=== PATIENT | male | born 1960 | race American Indian/Alaskan Native ===

== ENCOUNTER 2016-12-20 06:46 | Day surgery (SDC) | payer BC ==
[2016-12-20] MEDS ORDERED: DIPRIVAN 10 MG/ML IV ONE ×2 (08:35)
--- NOTE | 2016-12-20 08:41 | Short Stay Summary ---
Short Stay Documentation - Allergies and Medications Current Medications: Allergies No Known Allergies Allergy (Verified 01/23/14 10:26) Home Medications Medication Instructions Recorded Confirmed Last Taken Type Sennosides/Docusate Sodium 1 each PO DAILY #30 tablet 01/23/14 Unknown Rx [Daniela-Colace Tablet] Starch 51%(Nf) [Anusol] 1 each [place] BID #10 supp.rect 01/23/14 Unknown Rx Active Medications Sodium Chloride (Nacl 0.9% 1000 Ml) 1,000 mls @ 50 mls/hr IV DIRECT DIMA Stop: 12/20/16 23:59 - Brief post op/procedure progress note Date of procedure: 12/20/16 Pre-op diagnosis: Colon cancer screening Post-op diagnosis: same Procedure: Colonoscopy Anesthesia: MAC Findings: as above Surgeon: CHRISTOPH LAL Estimated blood loss: none Pathology: none Condition: stable - Disposition Condition at discharge: Stable Disposition: DISCHARGED TO HOME OR SELFCARE Short Stay Discharge Plan Activity: no restrictions Weight Bearing Status: Full Weight Bearing Diet: regular, low salt, diabetic Follow up with: TAMMI JI MD, PHD [Primary Care Provider] - 7 Days
--- NOTE | 2016-12-20 08:45 | Anesthesia Day of Surgery ---
Anesthesia Day of Surgery - Day of Surgery Patient Examined: Yes Patient H&P Reviewed: Yes Patient is NPO: Yes
--- NOTE | 2016-12-20 08:47 | Anesthesia Consultation ---
Anesthesia Consult and Med Hx Date of service: 12/20/16 - Airway Anesthetic Teeth Evaluation: Good ROM Head & Neck: Adequate Mental/Hyoid Distance: Adequate Mallampati Class: Class II Intubation Access Assessment: Probably Good - Pulmonary Exam CTA: Yes - Cardiac Exam Cardiac Exam: RRR - Pre-Operative Health Status ASA Pre-Surgery Classification: ASA2 Proposed Anesthetic Plan: MAC - Pulmonary Hx Smoking: No - Cardiovascular System Hx Hypertension: Yes Hx Heart Attack/AMI: No - Endocrine Hx Non-Insulin Dependent Diabetes: Yes - Other Systems Hx Cancer: Yes (hx of prostrate ca sp treatment) - Additional Comments Anesthesia Medical History Comments: NAC
[2016-12-20] MEDS ORDERED: NACL 0.9% 1000 ML 1,000 ML IV SCH (09:00)
--- NOTE | 2016-12-20 09:24 | Post Anesthesia Evaluation ---
- Post Anesthesia Evaluation Patient Participated: Yes Airway Patent: Yes Stable Respiratory Function: Yes Nausea/Vomiting: No Temp > 96.8F: Yes Pain Manageable: Yes Adequeate Hydration: Yes Anesthesia Complications: No
[2016-12-20 10:04] VITALS: BP 134/78
== END 2016-12-20 06:47 | disposition home or self-care (01) ==
LOC: GIO 06:46
PROVIDERS: ATTEND Internal Medicine Gastroenterology
DX: Z12.11 Encounter for screening for malignant neoplasm of colon (principal); K64.0 First degree hemorrhoids; E11.9 Type 2 diabetes mellitus without complications; I10 Essential (primary) hypertension; Z98.890 Other specified postprocedural states; Z90.79 Acquired absence of other genital organ(s); Z72.89 Other problems related to lifestyle; Z82.3 Family history of stroke; Z83.3 Family history of diabetes mellitus; Z82.49 Family history of ischemic heart disease and other diseases of the circulatory system; Z85.46 Personal history of malignant neoplasm of prostate
CPT/HCPCS: 45378; 82962; J2704; J7030

== ENCOUNTER 2017-09-25 11:08 | Day surgery (SDC) | payer BC ==
[~2017-09-25 11:08] MED LIST: ANCEF/STERILE WATER 2 GM/20 ML IV NR; NACL 0.9% 1000 ML 1,000 ML IV SCH; PEPCID IV NR; SUBLIMAZE IV PRN; ZOFRAN IV PRN
[2017-09-25] MEDS ORDERED: NACL BACTERIOSTATIC INFILTRATI ONE (11:40)
--- NOTE | 2017-09-25 12:10 | Anesthesia Consultation ---
Anesthesia Consult and Med Hx Date of service: 09/25/17 - Airway Anesthetic Teeth Evaluation: Good ROM Head & Neck: Adequate Mental/Hyoid Distance: Adequate Mallampati Class: Class I Intubation Access Assessment: Good - Pulmonary Exam CTA: Yes - Cardiac Exam Cardiac Exam: RRR - Pre-Operative Health Status ASA Pre-Surgery Classification: ASA2 Proposed Anesthetic Plan: General - Pulmonary Hx Smoking: No Hx Sleep Apnea: No (VINICIO PRE SCREEN HIGH RISK) - Cardiovascular System Hx Hypertension: Yes (X 20 YRS) Hx Heart Attack/AMI: No - Endocrine Hx Non-Insulin Dependent Diabetes: Yes - Other Systems Hx Cancer: Yes
--- NOTE | 2017-09-25 12:11 | Anesthesia Day of Surgery ---
Anesthesia Day of Surgery - Day of Surgery Patient Examined: Yes Patient H&P Reviewed: Yes Patient is NPO: Yes
[2017-09-25] MEDS ORDERED: SUBLIMAZE ONE (12:42)
[2017-09-25] MEDS ORDERED: DIPRIVAN 10 MG/ML IV ONE (12:42)
[2017-09-25] MEDS ORDERED: XYLOCAINE MPF 2% ONE (12:42)
[2017-09-25] MEDS ORDERED: NACL 0.9% IR ONE (13:00)
[2017-09-25] MEDS ORDERED: ZOFRAN ONE (14:03)
[2017-09-25] MEDS ORDERED: DECADRON ONE (14:03)
--- NOTE | 2017-09-25 14:15 | Short Stay Summary ---
Short Stay Documentation Date of service: 09/25/17 - History H&P: obtained from office - Allergies and Medications Current Medications: Allergies No Known Allergies Allergy (Verified 01/23/14 10:26) Home Medications Medication Instructions Recorded Confirmed Last Taken Type Aspirin BABY CHEW TAB 81 mg PO DAILY 12/20/16 09/25/17 2 Weeks Ago History ~09/11/17 Janumet 50-1,000 mg 1 tab PO BID 12/20/16 09/25/17 09/24/17 History Multiple Vitamin TAB (Theragran) 1 tab PO DAILY 12/20/16 09/25/17 09/24/17 History Testosterone 1 ml IM QMONTH 12/20/16 09/25/17 09/06/17 History Lisinopril/Hydrochlorothiazide 1 each PO DAILY 09/17/17 09/25/17 09/25/17 07:00 History [Zestoretic 10-12.5 mg Tablet] amLODIPine [Norvasc] 5 mg PO DAILY 09/17/17 09/25/17 09/24/17 History Active Medications Cefazolin Sodium (Ancef/Sterile Water 2 Gm/20 Ml) 2 gm IV PREOP NR Stop: 09/25/17 23:59 Famotidine (Pepcid) 20 mg IV PREOP NR Stop: 09/25/17 20:00 Last Admin: 09/25/17 12:17 Dose: 20 mg Fentanyl (Sublimaze) 50 mcg IV Q5MIN PRN PRN Reason: Pain , Severe (7-10) Stop: 09/25/17 15:00 Hydromorphone HCl (Dilaudid) 0.25 mg IV Q10MIN PRN PRN Reason: Pain, Moderate (4-6) Stop: 09/25/17 15:00 Sodium Chloride (Nacl 0.9% 1000 Ml) 1,000 mls @ 100 mls/hr IV DIRECT DIMA Last Admin: 09/25/17 12:05 Dose: 100 mls/hr Ondansetron HCl (Zofran) 4 mg IV ONCE PRN PRN Reason: Nausea And Vomiting Stop: 09/25/17 15:00 - Brief post op/procedure progress note Date of procedure: 09/25/17 Pre-op diagnosis: bilat hydrocele, redundant scrotal skin Post-op diagnosis: same Procedure: scrotaplasty, bilat hydrocelectomy Anesthesia: IDA Surgeon: DANIEL HILARIO Estimated blood loss: minimal Pathology: list (skin, hydrocele sac) Specimen disposition: to lab Condition: stable - Hospital course Hospital course: norco on chart, ok to shower, no baths - Disposition Condition at discharge: Stable Disposition: DC-01 TO HOME OR SELFCARE Short Stay Discharge Plan Follow up with: TAMMI JI MD, PHD [Primary Care Provider] - 7 Days
--- NOTE | 2017-09-25 14:32 | Operative Report ---
PREOPERATIVE DIAGNOSES: Bilateral hydrocele, redundant scrotal skin. POSTOPERATIVE DIAGNOSES: Bilateral hydrocele, redundant scrotal skin. PROCEDURES: Bilateral hydrocelectomy and scrotoplasty with Carito drain. SURGEON: Tone Peterson M.D. ANESTHESIA: General. ESTIMATED BLOOD LOSS: Minimal. FLUIDS: Crystalloid. COMPLICATIONS: No complications. INDICATIONS: This patient is a 57-year-old gentleman known to my service with a history of prostate cancer, status post robotic prostatectomy in 2008. He has done well from a cancer standpoint. He was found to have scrotal swelling. Ultrasound revealed bilateral hydroceles, left greater than right. He presents now for hydrocelectomy. DESCRIPTION OF PROCEDURE: The patient was taken to the operative suite and placed in the supine position. After adequate general anesthesia, he was prepped and draped in a sterile fashion. A transverse scrotal incision was made. A wedge excision of the redundant scrotal skin was obtained and sent for routine pathologic evaluation. On the left side, the hydrocele sac was opened. Serosanguineous fluid was evacuated. The hydrocele sac was excised and sent for routine pathologic evaluation. Normal testicle. Whipstitch was placed in the remnant sac using 2-0 chromic in a running fashion. Similar procedure was performed on the right side. Adequate hemostasis was achieved. A 1/2 inch Carito drain was brought out through a separate stab incision and secured into the skin with 2-0 chromic in an interrupted fashion. Dartos layer was closed with 2-0 chromic in a running fashion incorporating the septum into the closure. Skin was closed with 3-0 chromic in an interrupted fashion. The patient tolerated the procedure well. Scrotal support was placed. He was extubated and taken to recovery room in stable condition. He will go home on [place]. JOB# [id number] [facility]
[2017-09-25] MEDS: DILAUDID IV PRN ×2 (14:35→14:45)
[2017-09-25] MEDS ORDERED: NORCO 5/325 PO PRN (14:55)
[2017-09-25 15:38] VITALS: BP 133/75
== END 2017-09-25 16:04 | disposition home or self-care (01) ==
LOC: OR 11:08
PROVIDERS: ATTEND Urology
DX: N43.2 Other hydrocele (principal); N50.89 Other specified disorders of the male genital organs; N49.2 Inflammatory disorders of scrotum; I10 Essential (primary) hypertension; E11.9 Type 2 diabetes mellitus without complications; Z85.46 Personal history of malignant neoplasm of prostate; Z90.79 Acquired absence of other genital organ(s)
CPT/HCPCS: 36415; 55041; 55175; 82962; 84132; 88302; J0690; J1100; J1170; J2405; J2704; J3010; J7030; 88305

== ENCOUNTER 2019-02-18 14:41 | Emergency (ER) | payer BC ==
[2019-02-18 15:01] VITALS: BP 145/80
--- NOTE | 2019-02-18 15:01 | Event Note ---
ED Screening Note ED Screening Note: This is a 58 y.o. M. that presents to the ER with rectal pain. He was diagnosed with internal hemorrhoids and think pain may be related. Pain only with bowl movements and mild discomfort with sitting. HTN, DM, prostate CA Denies bleeding Nonsmoker This initial assessment/diagnostic orders/clinical plan/treatment(s) is/are subject to change based on patients health status, clinical progression and re- assessment by fellow clinical providers in the ED. Further treatment and workup at subsequent clinical providers discretion. Patient/guardian urged not to elope from the ED as their condition may be serious if not clinically assessed and managed. Initial orders include: ACC for further evaluation
--- NOTE | 2019-02-18 15:49 | Emergency Department Report ---
HPI - General Chief Complaint: Rectal Pain Time Seen by Provider: 02/18/19 14:58 - HPI HPI: 58-year-old -[place] male presents to the emergency department with a complaint of rectal pain that occurs when he has a bowel movement. He says that his bowel movements are soft. He has a history of hemorrhoids that were previously found during a colonoscopy. Over the past few days he feels like there is some firmness or swelling around the inside of the rectum. There has been no rectal bleeding. He has been using preparation H with lidocaine suppositories for his symptoms without much relief. He has a history of prostate cancer that was previously treated by Dr. Peterson and he says he has an appointment for a "full body scan" on March 02. He had an appointment with his double bass player, Dr. Rojo, for February 23 but he canceled it to come into the emergency department and be seen. He did not think he could wait secondary to the pain. ED Past Medical Hx - Past Medical History Previous Medical History?: Yes Hx Hypertension: Yes (X 20 YRS) Hx Heart Attack/AMI: No Hx Diabetes: Yes Hx of Cancer: Yes (prostate) Hx HIV: No - Surgical History Past Surgical History?: Yes Additional Surgical History: prostste ca surg. 2008 - Social History Smoking Status: Never Smoker Substance Use Type: Alcohol - Medications Home Medications: Home Medications Medication Instructions Recorded Confirmed Last Taken Type Aspirin BABY CHEW TAB 81 mg PO DAILY 12/20/16 09/25/17 2 Weeks Ago History ~09/11/17 Janumet 50-1,000 mg 1 tab PO BID 12/20/16 09/25/17 09/24/17 History Multiple Vitamin TAB (Theragran) 1 tab PO DAILY 12/20/16 09/25/17 09/24/17 History Testosterone 1 ml IM QMONTH 12/20/16 09/25/17 09/06/17 History Lisinopril/Hydrochlorothiazide 1 each PO DAILY 09/17/17 09/25/17 09/25/17 07:00 History [Zestoretic 10-12.5 mg Tablet] amLODIPine [Norvasc] 5 mg PO DAILY 09/17/17 09/25/17 09/24/17 History Hydrocortisone Acetate [Proctocort 30 mg RC BID PRN #1 box 07/31/19 Unknown Rx SUPPOS] ED Review of Systems ROS: Stated complaint: RECTAL PAIN Other details as noted in HPI Comment: All other systems reviewed and negative Constitutional: denies: chills, fever Gastrointestinal: other (rectal pain). denies: abdominal pain, nausea, vomiting, constipation, melena Musculoskeletal: denies: back pain, arthralgia Physical Exam - Physical Exam Vital Signs: Vital Signs 02/18/19 14:59 Temperature 98.1 F Pulse Rate 65 Respiratory 18 Rate Blood Pressure 145/80 [Right] O2 Sat by Pulse 99 Oximetry Physical Exam: GENERAL: The patient is well-developed well-nourished. HENT: Normocephalic. Atraumatic. Patient has moist mucous membranes. EYES: Extraocular motions are intact. NECK: Supple. Trachea is midline. CHEST/LUNGS: Clear to auscultation. There is no respiratory distress noted. HEART/CARDIOVASCULAR: Regular. There is no tachycardia. There is no murmur. ABDOMEN: There is no abdominal distention. SKIN: Skin is warm and dry. NEURO: The patient is awake, alert, and oriented. The patient is cooperative. The patient has normal speech. MUSCULOSKELETAL: There is no tenderness or deformity. There is no limitation range of motion. There is no evidence of acute injury. RECTAL: No visible external hemorrhoids, perirectal lesions or any swelling or fluctuance. No gross bleeding seen. ED Course Vital Signs 02/18/19 14:59 Temperature 98.1 F Pulse Rate 65 Respiratory 18 Rate Blood Pressure 145/80 [Right] O2 Sat by Pulse 99 Oximetry ED Medical Decision Making - Medical Decision Making This patient presents with a complaint of some rectal pain and pressure when he has a bowel movement. The patient says that he has soft stools. He has a history of internal hemorrhoids previously found in 2016 during a colonoscopy. He had an appointment with gastroenterology for Saturday but canceled it as he did not feel that he could wait and came in to the emergency department instead. On examination he does not appear to have any external hemorrhoids, perirectal abscess or fluctuance or swelling, rectal lesions. There is no complaints of any rectal bleeding. The patient does not have any rectal pain if he is not having a bowel movement. His vital signs were stable including being afebrile. He has a history of his prostate cancer and says that he is due for a total body scan due to some increased PSA levels with his urologist. The patient will be placed on Proctofoam suppositories secondary to his previous history of internal hemorrhoids. He will continue to follow up with gastroenterology and has been given a referral for [place] [facility] as well. He will continue with his full body scan. He has no back pain, abdominal or pelvic pain, problems with urination or having bowel movements, and appears safe for discharge home at this time. He will return to the emergency Department with any worsening of his symptoms or any acute distress. - Differential Diagnosis hemorrhoids, perirectal abscess, malignancy, anal fissure Critical Care Time: No Critical care attestation.: If time is entered above; I have spent that time in minutes in the direct care of this critically ill patient, excluding procedure time. ED Disposition Clinical Impression: Rectal pain Disposition: DC-01 TO HOME OR SELFCARE Is pt being admited?: No Condition: Stable Additional Instructions: Please follow up with a double bass player regarding your rectal pain and suspicion of hemorrhoids. Continue with your full body scan and evaluation through your urologist. Return to the emergency Department with any worsening of your symptoms, development of fever, inability to have a bowel movement, rectal or GI bleeding, or if any acute distress. Prescriptions: Hydrocortisone Acetate [Proctocort SUPPOS] 30 mg RC BID PRN #1 box PRN Reason: Hemorrhoids Referrals: [facility] [Provider Group] - 3-5 Days Time of Disposition: 15:49
== END 2019-02-18 15:58 | disposition home or self-care (01) ==
LOC: ED 14:41
DX: K62.89 Other specified diseases of anus and rectum (principal); I10 Essential (primary) hypertension; E11.9 Type 2 diabetes mellitus without complications; Z98.890 Other specified postprocedural states; Z79.82 Long term (current) use of aspirin; Z79.899 Other long term (current) drug therapy
CPT/HCPCS: 99282

== ENCOUNTER 2019-03-02 07:41 | Outpatient (CLI) | payer BC ==
--- NOTE | 2019-03-02 10:21 | Cat Scan Report ---
CT ABDOMEN AND PELVIS WITHOUT CONTRAST INDICATION / CLINICAL INFORMATION: C61 MALIGNANT NEOPLASM OF PROSTATE. Elevated PSA. TECHNIQUE: Axial CT images were obtained through the abdomen and pelvis without IV contrast. All CT scans at [facility] location are performed using CT dose reduction for ALARA by means of automated exposure control. COMPARISON: None available. FINDINGS: LOWER CHEST: No significant abnormality. LIVER: No significant abnormality. GALLBLADDER: No significant abnormality. BILE DUCTS: No significant abnormality. PANCREAS: No significant abnormality. SPLEEN: No significant abnormality. ADRENALS: Hypodense right adrenal nodule measuring 3 Hounsfield units and 1.8 x 1.4 cm characteristic of adrenal adenoma. RIGHT KIDNEY and URETER: No significant abnormality. LEFT KIDNEY and URETER: Punctate nonobstructing intrarenal stone. No ureteral stone or hydronephrosis . STOMACH and SMALL BOWEL: No significant abnormality. COLON: No significant abnormality. APPENDIX: No significant abnormality. PERITONEUM: No free fluid. No free air. No fluid collection. LYMPH NODES: No significant adenopathy. AORTA and ARTERIES: No significant abnormality. IVC and VEINS: No significant abnormality. URINARY BLADDER: No significant abnormality. REPRODUCTIVE ORGANS: Prostate appears surgically absent. ADDITIONAL FINDINGS: None. SKELETAL SYSTEM: No definite sclerotic lesions of the visualized osseous structures. IMPRESSION: 1. No CT evidence for significant adenopathy or osseous metastatic disease. 2. Prior prostatectomy. 3. Small, benign, right adrenal adenoma. No additional imaging evaluation is needed. Signer Name: Mary Ann Cleveland MD Signed: 03/02/2019 10:16 AM Workstation Name: [id number]
--- NOTE | 2019-03-02 11:46 | Nuclear Medicine Report ---
NUCLEAR MEDICINE BONE SCAN, WHOLE BODY INDICATION: C61 MALIGNANT NEOPLASM OF PROSTATE. TECHNIQUE: 28 mCi of Tc-99m MDP were injected IV. Whole body images were obtained. COMPARISON: CT abdomen pelvis without contrast performed the same day. FINDINGS: Skeletal Structures: Fairly symmetric, likely degenerative uptake is present involving the shoulders , sternoclavicular joints, spine and right knee.. Skeletal Lesions: None. Soft Tissues: Normal. Kidneys: Normal, symmetric activity. Additional Findings: None. IMPRESSION: Degenerative findings as described. No evidence for metastatic disease to the bones.. Signer Name: Matthew Montgomery Jr, MD Signed: 03/02/2019 11:42 AM Workstation Name: [id number]
== END 2019-03-02 07:42 | disposition home or self-care (01) ==
LOC: NM 07:41
PROVIDERS: ATTEND Urology
DX: D35.01 Benign neoplasm of right adrenal gland (principal); C61 Malignant neoplasm of prostate; I10 Essential (primary) hypertension; E11.9 Type 2 diabetes mellitus without complications
CPT/HCPCS: 74176; 78306; A9503